=== PATIENT | male | born 2000 | race Two or more races ===

== ENCOUNTER 2022-02-02 14:42 | Emergency (ER) | payer BC ==
[~2022-02-02] VITALS: Ht 185.4 cm; Wt 77.1 kg
[2022-02-02 14:47] VITALS: BP 116/71
--- NOTE | 2022-02-02 14:50 | NUR ---
21 Y/O MALE BIB MOTHER C/O LOW BACK PAIN/DIZZINESS AND URINE RETENTION/DYSURIA X1WK.PT C/P NAUSEA AND VOMITING. PAIN 7/10 IN LOWER BACK,DENIES RADIATION. PT DENIES TRAUMA. PT HAS PT WAS SEEN AT URGENT CARE AND WAS TREATED WITH FLEXIRIL AND ACCORDING TO PATIENT THIS MEDICATION "MADE HIM FEEL WORSE". PT IS ALERT AND ORIENTED X4. BED IN LOWEST POSITION. BED RAIL X1. MEDHX: DENIES NKA
--- NOTE | 2022-02-02 15:12 | NUR ---
PT AMBULATED TO BED, STEADY GAIT
[2022-02-02] MEDS ORDERED: ACETAMINOPHEN EXTRA STRENGTH 500 MG TAB PO ONE (15:15)
[2022-02-02] MEDS ORDERED: cefTRIAXone 500 MG VIAL IM ONE (15:15)
[2022-02-02] MEDS ORDERED: KETOROLAC 60 MG/2 ML VIAL IM ONE (15:25)
[2022-02-02] MEDS ORDERED: KETOROLAC 30 MG/ML VIAL IVP ONE (15:30)
[2022-02-02] MEDS ORDERED: NACL 0.9% 1,000 ML IV SCH (15:30)
[2022-02-02] MEDS ORDERED: ONDANSETRON 4 MG/2 ML VIAL IVP ONE (15:30)
[2022-02-02 15:56] LABS: HEMATOCRIT 39.8 % (36-52); HEMOGLOBIN 13.6 g/dL (12.0-18.0); MEAN CORPUSCULAR HEMOGLOBIN 29 pg (27-31); MEAN CORPUSCULAR HGB CONC 34 g/dL (33-37); MEAN CORPUSCULAR VOLUME 85.6 fL (80-94); PLATELET COUNT (AUTO) 191 K/uL (140-450); RED BLOOD CELL COUNT(AUTO) 4.65 MIL/uL (4.20-6.10); RED CELL DISTRIBUTION WIDTH 12.7 % (11.6-13.7); WHITE BLOOD COUNT (AUTO) 21.9 K/uL (4.8-10.8)
[2022-02-02 16:00] LABS: BILIRUBIN,URINE 1+ (NEGATIVE); BLOOD, URINE 2+ (NEGATIVE); COLOR,URINE YELLOW (YELLOW); LEUKOCYTE ESTERASE ,URINE 3+ (NEGATIVE); NITRITE, URINE NEGATIVE (NEGATIVE); UGLUCOSE NEGATIVE (NEGATIVE)
[2022-02-02 16:02] LABS: APPEARANCE,URINE CLOUDY (CLEAR)
[2022-02-02] MEDS ORDERED: LIDOCAINE MPF 1% 5 ML ONE (16:02)
[2022-02-02] MEDS ORDERED: LIDOCAINE MPF 1% 10 MG/ML VIAL INJ ONE (16:05)
[2022-02-02 16:12] LABS: ALBUMIN 3.5 g/dL (3.4-5.0); CARBON DIOXIDE 25.5 mmol/L (21-32); CREATININE 1.2 mg/dL (0.6-1.3); POTASSIUM 3.5 mmol/L (3.5-5.1); TOTAL BILIRUBIN 1.4 mg/dL (0.0-1.0)
[2022-02-02 16:15] LABS: LYMPHOCYTES % (MANUAL) 3 % (20-46); MONOCYTES % (MANUAL) 2 % (5-12)
[2022-02-02 16:18] LABS: WBC,URINE TOO MANY TO COUNT /HPF (0-5)
--- NOTE | 2022-02-02 16:25 | NUR ---
PT TAKEN TO CT VIA WC
[2022-02-02] MEDS ORDERED: CIPR500T4 PO (17:09)
[2022-02-02] MEDS ORDERED: DOXY-690 PO (17:09)
[2022-02-02] MEDS ORDERED: ACET-8386 PO (17:09)
[2022-02-02] MEDS ORDERED: IBUP-2213 PO (17:09)
[2022-02-02 17:20] VITALS: BP 117/71
--- NOTE | 2022-02-02 17:21 | NUR ---
Patient discharged with v/s stable. Written and verbal after care instructions given and explained. Patient alert, oriented and verbalized understanding of instructions. Ambulatory with steady gait. All questions addressed prior to discharge. ID band removed. Patient advised to follow up with PMD. Rx of HYDROCODONE-ACETAMINOPHNE, CIPRO, VIBRAMYCIN given. Patient educated on indication of medication including possible reaction and side effects. Opportunity to ask questions provided and answered.
== END 2022-02-02 17:20 | disposition home or self-care (01) ==
LOC: MED 14:42
DX: N12 Tubulo-interstitial nephritis, not specified as acute or chronic (principal); M54.50 Low back pain, unspecified; R11.2 Nausea with vomiting, unspecified; R30.0 Dysuria
CPT/HCPCS: 36415; 74176; 80053; 81001; 83690; 85025; 86592; 87086; 87491; 96361; 96372; 96374; 96375; 99284; J0696; J1885; J2001; J2405; J7030